=== PATIENT | female | born 1940 | race Caucasian/White ===

== ENCOUNTER 2017-02-06 23:07 | Emergency (ER) | payer MEDICARE, OTHER ==
[~2017-02-06 23:07] MED LIST: 8 HOUR650 MG PO; ALLEGRA OTC PO; ALLEGRA180 PO; ALPHA LIPOIC ACID PO; AMITIZA8 MCG PO; AMOXIL875 PO; ASAB PO; ASAEC PO; AUG875 PO; BETHAN10B PO; C25 PO; CENTRUM PO; CENTRUM TAB1 TAB PO; CITRACAL PO; COZ25 PO; DIOV160 PO; DOK250 MG PO; DSS PO; ENABLEX7.5 PO; FLONASE NAS; FORTEO SC; HALF81 PO; HUMI PO; IBU600 PO; IRON325 MG PO; LIDOCAINE 2% JELLY TOP; LORTAB 5 PO; LORTAB 5/325 PO; LOVENOX40 SC; LYRICA25 PO; MAXIMUM D3 PO; MIRALAXPKT PO; MIRAPEX ER0.75 MG PO; MIRAPEX0.75 MG PO; MIRAPEX5 PO; MONODOX100 MG PO; MULTIVITAMI1 PO; NEUR100 PO; NOR10 PO; NORCO1 TA1 PO; NORV5 PO; OS250 PO; OSTEO BI-FLEX1 EACH PO; PREM9 PO; PRESERVISION A1 EAC1 PO; PRILO PO; PROAIR HFA INH; PROLIA60 MG/1 ML SC; PROTONIX PO; REG5 PO; REST15 PO; SINGULAIR1 PO; STOOL SOFTEN100 MG PO; T PO; THERGRANM PO; TYLENOL 8 HR650 MG PO; TYLENOL ARTH650 MG PO; VITAMIN D31000 UNIT PO; ZOFRAN ODT4 MG PO; ZOSYN375 IV; [UNRECOGNIZED DRUG - OTHER] PO
[2017-02-07 00:22] LABS: INTERNATIONAL NORMAL RATI 1.1 UNITS (-); PROTIME (NOT ORD) 13.8 SEC (12.0-14.5)
[2017-02-07 00:23] LABS: ASCORBIC ACID (UR NOT ORDER) 40 (NEG); BILIRUBIN, URINE NEGATIVE (NEG); ER URINALYSIS TAT 0 Hrs 07 Mins; KETONE, URINE NEGATIVE (NEG); LEUKOCYTE ESTERASE(NOT OR LARGE (NEG)
[2017-02-07 00:24] LABS: NITRITE (URINE) POS (NEG); WBC (NOT ORDERED) (RFLEX) > 182 (0-5)
[2017-02-07 00:30] LABS: LACTATE 0.9 MMOL/L (0.3-2.4)
[2017-02-07 00:33] LABS: CHLORIDE, SERUM 108 MMOL/L (96-112); CO2 (CARBON DIOXIDE) 22 MMOL/L (24-34); CREATININE 0.63 MG/DL (0.55-1.02); GFR AFRICAN AMERICAN 100 ML/MIN (>=60); GFR NON AFRICAN AMERICAN 86 ML/MIN (>=60); SGOT(AST) 15 U/L (5-40); SGPT(ALT) 22 U/L (5-65); SODIUM, SERUM 139 MMOL/L (135-148); TOTAL BILIRUBIN 0.6 MG/DL (0-1.2); TROPONIN I <0.02 NG/ML (<0.05)
[2017-02-07 00:34] LABS: A/G RATIO 0.8 (0.7-1.9); ALBUMIN 3.5 G/DL (3.5-5.0); ALKALINE PHOSPHATASE 108 U/L (45-117); BUN (BLOOD UREA NITROGEN) 24 MG/DL (6-23); CALCIUM, SERUM 8.7 MG/DL (8.5-10.4); GLOBULIN 4.2 G/DL (2.5-4.1); GLUCOSE, SERUM 119 MG/DL (60-99); INFLUENZA A SCREEN NEGATIVE (NEGATIVE); INFLUENZA B SCREEN NEGATIVE (NEGATIVE); POTASSIUM, SERUM 4.5 MMOL/L (3.5-5.3); TOTAL PROTEIN 7.7 G/DL (6.0-8.5)
[2017-02-07 00:36] LABS: BASOPHILS 0.1 %; BASOPHILS ABSOLUTE 0.01 10/3/uL (0.0-0.16); EOSINOPHILS 0 %; ER CBC TAT 0 Hrs 33 Mins; HEMOGLOBIN 12.4 g/dL (12.0-16.0); IMMATURE GRANULOCYTES 0.1 %; IMMATURE GRANULOCYTES ABSOLUTE 0.01 10/3/uL (0.0-0.11); LYMPHOCYTES 5.1 %; LYMPHOCYTES ABSOLUTE 0.39 10/3/uL (0.67-4.30); MEAN CORPUS HGB CONC 31.8 g/dL (32.0-36.0); MEAN CORPUSCULAR VOLUME 94.4 fL (80-100); MEAN PLATELET VOLUME 10.4 fL (9.2-13.0); MONOCYTES 5.3 %; MONOCYTES ABSOLUTE 0.41 10/3/uL (0.21-1.20); NEUTROPHILS 89.4 %; NEUTROPHILS ABSOLUTE 6.87 10/3/uL (2.02-8.40); PLATELET COUNT 250 10/3/uL (150-400); RBC DISTRIBUTION WIDTH 14.4 % (12.0-16.0); RED CELL COUNT 4.13 10/6/uL (4.0-5.6); WHITE BLOOD CELLS 7.7 10/3/uL (4.5-10.5)
[2017-02-07 00:37] LABS: MANUAL DIFF NO %
[2017-02-07 00:56] LABS: BAND NEUTROPHILS 33 %; ER DIFF TAT 0 Hrs 53 Mins; LYMPHOCYTES 4 %; LYMPHOCYTES ABSOLUTE (CALC) 0.31 10/3/uL (0.67-4.30); NEUTROPHILS ABSOLUTE (CALC) 7.39 10/3/uL (2.02-8.40); SEGMENTED NEUTROPHIL (0) 63 %; TOTAL NUCLEATED CELLS 100
[2017-02-07 00:59] LABS: RBC MORPHOLOGY NORM (NORMAL)
[2017-02-07 02:18] LABS: PROCALCITONIN 0.77 ng/mL (<0.5)
== END 2017-02-07 03:17 | disposition home or self-care (01) ==
LOC: ER 23:07
PROVIDERS: Nurse Practitioner
DX: N39.0 Urinary tract infection, site not specified (principal); M79.1 Myalgia; R11.2 Nausea with vomiting, unspecified; J45.909 Unspecified asthma, uncomplicated; I10 Essential (primary) hypertension; K21.9 Gastro-esophageal reflux disease without esophagitis; I25.10 Atherosclerotic heart disease of native coronary artery without angina pectoris; Z87.01 Personal history of pneumonia (recurrent); Z88.8 Allergy status to other drugs, medicaments and biological substances; Z88.1 Allergy status to other antibiotic agents; Z79.82 Long term (current) use of aspirin; Z79.899 Other long term (current) drug therapy
CPT/HCPCS: 74022; 80053; 81001; 83605; 83690; 84145; 84484; 85025; 85610; 85730; 87077; 87086; 87186; 87804; 96374; 96375; 99285; J2405

== ENCOUNTER 2017-04-15 14:56 | Observation (INO) | payer MEDICARE, OTHER ==
--- NOTE | ~2017-04-15 | CN ---
Consultation Report [facility] [address] [place]. [address] NAME: ÁNGELA DOSHI : 36 STATUS : ADM Thomas PAT#: [id number] AGE: 76 ADM/REG DATE : 04/15/17 MR#: [id number] REPORT SERV DATE: 04/16/17 DICTATED BY: DEBRA VALLE DATE: 04/16/17 REPORT STATUS : Draft TRANSCRIBED BY: MODL DATE: 04/16/17 NEUROLOGY CONSULTATION DATE OF CONSULTATION: 04/16/2017 REASON FOR CONSULTATION: Dysarthria and left arm weakness. HOSPITALIST: Dr. Yue Read/Dr. Christian Bustos. HISTORY OF PRESENT ILLNESS: The patient is a 76-year-old female, who has a history of stroke with left-sided arm weakness and dysarthria, this occurred in 2008. She seemed to recover fairly quickly. However, she did have some intermittent dysarthria and left arm weakness. The patient mentions that for several years, she seemed to do fairly well in regard to recovery, but over the last couple of weeks, she began to become dysarthric and had weakness in her left arm. She denies any fever, chills, nausea, or vomiting; however, she does have persistent and chronic urinary tract infections. The patient was concerned that maybe she was having a recurrence of her stroke. She also mentions that she has sharp left axillary pain and was concerned that maybe she was having a heart attack. When she came into the emergency department, she had an EKG and troponins drawn and was told that she was not having a heart attack. 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 PAST SURGICAL HISTORY: Heart catheterization, partial colectomy without colostomy, bladder surgery x2, skin cancer removal, left hip surgery, right knee surgery, hysterectomy, sinus surgery, possible lung resection and biopsy. HOME MEDICATIONS: List includes aspirin 81 mg daily and 324 mg p.r.n. chest pain, Prolia 60 mg subcu every six months, Roz 180 mg at bedtime, Neurontin 100 mg q.i.d., Osteo Bi-Flex 1 b.i.d., [place] 5/325 mg half a tablet with breakfast and lunch and a whole tablet at bedtime, Singulair 10 mg at bedtime, Centrum tablet 1 daily, Protonix 40 mg every morning, Mirapex 0.75 mg at bedtime, lidocaine topically on the affected areas and PreserVision AREDS 2 soft gel capsules daily. ALLERGIES: ERYTHROMYCIN, MACRODANTIN, ATIVAN, SIMVASTATIN, AND LEVAQUIN. SOCIAL HISTORY: The patient is x2. 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 She does not smoke, drink, alcohol, or use illicits. Her mother from a stroke. Her father from lung cancer and she has a brother with MS. Consultation Report [address] [address] NAME: ÁNGELA DOSHI : 38 STATUS : ADM Thomas PAT#: [id number] AGE: 76 ADM/REG DATE : 04/15/17 MR#: [id number] REPORT SERV DATE: 04/16/17 DICTATED BY: DEBRA VALLE DATE: 04/16/17 REPORT STATUS : Draft TRANSCRIBED BY: KESHAWN DATE: 04/16/17 REVIEW OF SYSTEMS: Please refer to HPI for pertinent positives. PHYSICAL EXAMINATION: GENERAL: The patient is a 76-year-old female, who is afebrile. VITAL SIGNS: Heart rate 86, respiratory rate 18, O2 saturations on room air 98%, blood pressure 171/77. NEURO: She is alert and oriented x4. Communicates appropriately. However, she is dysarthric. Cranial nerves II through XII are intact. Uadubl-pl-fepa, no ataxia. No pronator drift. She is weaker on the left arm than the right arm. Upper DTRs are 2+ bilaterally. No sensory deficits reported. Lower extremity strength is 5/5. Unable to elicit a DTR in the right, patellar region to the left is 1+, downgoing toes. CARDIAC: Regular rate and rhythm. CHEST: Lung sounds are clear. LABORATORY DATA: CBC is normal. BMP relatively normal except potassium of 3.4. PTH is 177.9. Urine drug screen positive for opiates and cannabinoids. CT of the brain, negative for acute changes. EKG, sinus rhythm with possible LVH. ASSESSMENT/PLAN: 1. Chronic urinary tract infections, predominantly Pseudomonas. At this point, we will recheck a urine sample with in-and-out catheterization. This could certainly be the cause of stroke mimic. 2. The patient has a history of stroke (right MCA territory). We will send the patient for MRI of the brain without gadolinium and an MRA of the head and neck with gadolinium. In the meantime, the patient will continue her aspirin, and we will place her on a statin. PT/OT consultation and Speech Therapy consultation for her dysarthria. We will check further lab work and progress from there. Thank you again for including us in consultation. We will continue to follow with you. JACQUELYN/KESHAWN Debra Valle DNP, [facility] / [id number] CC: Emily Cortes M.D. Richard L Yap, M.D.
--- NOTE | ~2017-04-15 | HP ---
History And Physical [place] [address] [facility]. [address] NAME: ÁNGELA DOSHI : 38 STATUS : ADM Thomas PAT#: [id number] AGE: 76 ADM/REG DATE : 04/15/17 MR#: [id number] REPORT SERV DATE: 04/15/17 DICTATED BY: ANGE VERDUZCO DATE: 04/15/17 REPORT STATUS : Draft TRANSCRIBED BY: MODL DATE: 04/15/17 DATE OF ADMISSION: 04/15/2017 CHIEF COMPLAINT: A 76-year-old female presenting with weakness left arm pain. HISTORY OF PRESENTING ILLNESS: The patient's history was obtained through careful interview with the patient and daughter coupled with review of [facility] and [facility] medical records. Just over the last 24 to 48 hours, the patient has had increasing fatigue, tiredness, and just feeling "weak all over." She has also had new-onset left armpit pain that radiates up into her shoulder. It is not associated with movement of her shoulder joint and it comes and goes. She describes the quality as "someone trying to twist my arm off," a 9/10 severity that will last five or ten minutes at a time. It will radiate down to her elbow and upward to her neck and back, and is described as a sharp quality as well. She describes it is also similar to lower extremity neuropathy symptoms that she has suffered for a number of years. For the last two or three months, she has had progressive left arm paresthesias that are new on onset, but no associated left arm weakness. She has had slight worsening of her chronic dysarthria over the last 24 hours and sometimes may have very mild aphasia where she seems to misplace words, but it is not too severe. No confusion, no double vision, no hemiparesis, no gait disturbance. She has a chronic ostomy and has had increased ostomy output over the last several days. No lightheadedness. No dizziness. She has been diaphoretic with sweats, but no fevers or chills. No nausea or vomiting. No chest pain. No shortness of breath. No cough. REVIEW OF SYSTEMS: Otherwise, a 14-point review of systems was obtained and was negative. PAST MEDICAL HISTORY: 1. Stroke in 2008 with residuals speech deficit. 2. Seizure. 3. Pneumonia in 2013. 4. Obstructive sleep apnea, but not on CPAP. 5. Asthma. Denies smoking history. 6. Hypertension. 7. Gastroesophageal reflux disorder. 8. Obsessive-compulsive disorder. 9. Ischemic colitis leading to partial colectomy. 10.Chronic lower extremity neuropathy, on chronic pain medication, seen by Dr. Barrios and History And Physical [place] [address] [place]. [address] NAME: ÁNGELA DOSHI : 38 STATUS : ADM Thomas PAT#: [id number] AGE: 76 ADM/REG DATE : 04/15/17 MR#: [id number] REPORT SERV DATE: 04/15/17 DICTATED BY: ANGE VERDUZCO DATE: 04/15/17 REPORT STATUS : Draft TRANSCRIBED BY: KESHAWN DATE: 04/15/17 also at [facility]. 11.Nephrolithiasis, status post stent placement, seen by Dr. Varma. 12.Previous urinary tract infections with Pseudomonas. 13.Restless legs syndrome. 14.Positive gastroparesis study in 2010. 15.Negative catheterization of the heart in 2010. PAST SURGICAL HISTORY: 1. Partial colectomy with colostomy placement for ischemic colitis in 2012. 2. Bladder surgery x2. 3. Skin cancer removals. 4. Left hip surgery. 5. Right knee surgery. 6. Hysterectomy. 7. Sinus surgery. 8. Possible partial lung resection or biopsy in the past? ALLERGIES: TO MACROBID, ATIVAN, ERYTHROMYCIN, SIMVASTATIN, AND LEVAQUIN. SOCIAL HISTORY: No tobacco abuse. No alcohol abuse. Lives alone in [place], [place]. Has been twice. 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 She has three children, two of her children live within 30 minutes, another daughter lives in [place]. FAMILY HISTORY: Mother had a stroke at 95 years of age. Father with lung cancer. Brother with multiple sclerosis. CURRENT MEDICATIONS: Include aspirin 162 mg p.o. daily, Prolia 60 mg every six months, Roz 180 mg p.o. daily, Neurontin 100 mg p.o. four times a day, glucosamine and hydrocodone 5 a half tablet at breakfast and lunch and then p.o. at bedtime, Singulair 10 mg p.o. daily, multivitamin, Protonix 40 mg p.o. daily, Mirapex 0.75 mg p.o. q.h.s., lidocaine jelly as needed. PHYSICAL EXAMINATION: VITAL SIGNS: Temperature 97.5, pulse 81, blood pressure 167/69, respiratory rate 18, O2 saturation 100% on room air. GENERAL: A pleasant, cooperative female, in no evidence of acute distress. NEUROLOGICAL: Cranial nerves 2 through 12 are intact and symmetrical. The patient has 5/5 strength in upper and lower extremities that is symmetrical. HEENT: Pupils equal, round, and reactive to light. No conjunctival pallor. No scleral icterus. Nares are patent. Oropharynx is clear of obstruction. Moist mucous membranes. NECK: Trachea midline. No thyromegaly. LYMPH: No cervical lymphadenopathy. No supraclavicular lymphadenopathy. No left axillary lymphadenopathy. RESPIRATORY: Clear to auscultation at bases. No wheezes, rales, or rhonchi. Normal respiratory effort. CARDIOVASCULAR: Regular rate and rhythm. There is a 2/6 rumbling systolic murmur. No rubs, History And Physical [address] [address] NAME: ÁNGELA DOSHI : 38 STATUS : ADM Thomas PAT#: [id number] AGE: 76 ADM/REG DATE : 04/15/17 MR#: [id number] REPORT SERV DATE: 04/15/17 DICTATED BY: ANGE VERDUZCO DATE: 04/15/17 REPORT STATUS : Draft TRANSCRIBED BY: MODJoy DATE: 04/15/17 or lydia. No extremity edema is appreciated. ABDOMEN: Soft, nontender, nondistended. Normal bowel sounds auscultated throughout. No hepatosplenomegaly. DERMATOLOGICAL: Warm and dry extremities. No pallor, no cyanosis. PSYCHIATRIC: Normal affect. Good mood. Alert and oriented x3. LABORATORY DATA: White blood cell count 6.8, hemoglobin 12, hematocrit 36, platelets 191. Sodium 141, potassium 4.3, chloride 109, bicarb 27, BUN 17, creatinine 0.63, glucose 109. Troponin negative. INR 1.0. Alcohol level negative. Urine drug screen positive for marijuana and opiates. Urinalysis shows 4 white blood cells. STUDIES: 1. Chest x-ray by my own evaluation shows no acute cardiopulmonary process. 2. EKG by my own evaluation shows sinus rhythm, left ventricular hypertrophy. 3. CT scan of the brain without contrast is pending at the time of dictation. ASSESSMENT AND PLAN: 1. Weakness. It is more of a global weakness rather than focal, but there has been gradual increase of left arm paresthesias, some slight increase in the patient's chronic dysarthria with possible mild aphasia as well. We will continue aspirin. Check a CT scan of the brain. Check an MRI of the brain. Check carotids. Check echocardiogram. Check fasting lipid panel. Check telemetry. Obtain a Physical Therapy evaluation. Obtain a neurology consult with Dr. Barrios. 2. Late effects of stroke. 3. Chronic pain management. 4. Murmur. Check an echocardiogram. 5. Chronic neuropathy. KPL/MODL Ange Verduzco M.D. / [id number] CC: Emily Cortes M.D.
--- NOTE | ~2017-04-15 | DS ---
Discharge Summary [facility] [address] [facility] [place]. [address] NAME: ÁNGELA DOSHI : 36 STATUS : DIS Thomas PAT#: [id number] AGE: 76 ADM/REG DATE : 04/15/17 MR#: [id number] REPORT SERV DATE: 04/17/17 DICTATED BY: NAVID CHOW DATE: 04/17/17 REPORT STATUS : Draft TRANSCRIBED BY: MODL DATE: 04/17/17 ADMISSION DATE: 04/15/2017 DISCHARGE DATE: 04/17/2017 CONSULTING PHYSICIAN: Neurology. FINAL DIAGNOSES: 1. Dysarthria. 2. History of old cerebrovascular accident. 3. Hypertension. 4. Chronic lower extremity pain and neuropathy. 5. Status post hypokalemia. 6. History of colostomy for ischemic colitis. 7. Restless leg syndrome. DIAGNOSTIC EXAMS: Chest x-ray showing emphysematous changes. Heart size normal. CAT scan of the brain, stable mild age-appropriate diffuse cerebral involutional changes, no acute intracranial pathology. Echocardiogram showing normal left ventricular size and systolic function with EF of 55%. Normal left ventricular diastolic dysfunction. Normal right ventricular size and systolic function. No significant valve disease. MRI of the brain showing no acute CVA or other acute intracranial pathology. Mild diffuse cerebral involutional changes and deep white matter chronic microvascular ischemic change. MRA of the head showing developmental variant supply of the right posterior artery from the anterior circulation and partial supply left posterior cerebral artery from the anterior circulation. Short segment smooth estimated 50% narrowing cranial portion of the V4 segment of the left vertebral artery just above the superior cerebellar artery branch. MRA of the neck showing unremarkable MRA of the carotid arteries. No significant atherosclerotic plaque or stenosis. Short segment estimated 50% smooth stenosis of the V4 segment of the left vertebral artery just proximal to the confluence to form the basilar artery. Otherwise, normal caliber and antegrade flow to the remaining bilateral vertebral arteries. HOSPITAL COURSE: Please refer to the H and P done by Dr. Lo dated on 04/15/2017. Briefly, this is a 76-year-old female, who comes in with weakness and left arm pain. The patient has a history of dysarthria and left arm paresthesias and was admitted by Dr. Lo for 48 hours of increasing fatigue, tiredness, and feeling weak. The patient had the above tests, and we got Neurology involved. They wanted the PT/OT to evaluate the patient and Speech. Speech recommended further speech therapy. Meanwhile, the patient arm pain and paresthesias seems to be back to normal with her regular medications and her dysarthria is apparently better. She said that she wants to go home. So, once we have Neurology, PT and OT see the patient Discharge Summary [place] [address] [place]. [address] NAME: ÁNGELA DOSHI : 36 STATUS : DIS Thomas PAT#: [id number] AGE: 76 ADM/REG DATE : 04/15/17 MR#: [id number] REPORT SERV DATE: 04/17/17 DICTATED BY: NAVID CHOW DATE: 04/17/17 REPORT STATUS : Draft TRANSCRIBED BY: KESHAWN DATE: 04/17/17 and agree with discharge, we will be discharging the patient with the above diagnosis. She will be on the following medications. Lipitor 40 mg at bedtime, Singulair 10 mg at bedtime, Mirapex 0.75 mg at bedtime, Protonix 40 mg a day, gabapentin 100 mg four times a day, [place] 5/325 half a tablet with breakfast and lunch and one tablet at night, Prolia 60 mg/mL q.6 months, Roz 180 mg at bedtime, aspirin 162 mg a day, multivitamin once a day. The patient will follow up with Shonda Aguero in one to two weeks. This has been explained to the patient, and she agreed and understood the plan DICTATED BY: Emily North/KESHAWN Navid Chow M.D. / [id number] CC: Emily North M.D.
[2017-04-15 16:03] LABS: BASOPHILS 0.4 %; BASOPHILS ABSOLUTE 0.03 10/3/uL (0.0-0.16); EOSINOPHILS 0.6 %; EOSINOPHILS ABSOLUTE 0.04 10/3/uL (0.0-0.53); HEMATOCRIT 36.3 % (36.0-48.0); HEMOGLOBIN 11.7 g/dL (12.0-16.0); IMMATURE GRANULOCYTES 0.3 %; IMMATURE GRANULOCYTES ABSOLUTE 0.02 10/3/uL (0.0-0.11); LYMPHOCYTES 19.6 %; LYMPHOCYTES ABSOLUTE 1.33 10/3/uL (0.67-4.30); MEAN CORPUS HGB CONC 32.2 g/dL (32.0-36.0); MEAN CORPUSCULAR HEMOGLOB 30.2 pg (26.0-34.0); MEAN CORPUSCULAR VOLUME 93.6 fL (80-100); MEAN PLATELET VOLUME 10.2 fL (9.2-13.0); MONOCYTES 5.2 %; MONOCYTES ABSOLUTE 0.35 10/3/uL (0.21-1.20); NEUTROPHILS 73.9 %; NEUTROPHILS ABSOLUTE 5.01 10/3/uL (2.02-8.40); PLATELET COUNT 191 10/3/uL (150-400); RBC DISTRIBUTION WIDTH 14.1 % (12.0-16.0); RED CELL COUNT 3.88 10/6/uL (4.0-5.6); WHITE BLOOD CELLS 6.8 10/3/uL (4.5-10.5)
[2017-04-15 16:04] LABS: MANUAL DIFF NO %
[2017-04-15 16:10] LABS: PARTIAL THROMBO TIME 29.3 SEC (22.5-37.2); PROTIME (NOT ORD) 13.5 SEC (12.0-14.5)
[2017-04-15 16:25] LABS: ACETAMINOPHEN LEVEL (TYLENOL) 4.1 MCG/ML (10.0-20.0); CALCIUM, SERUM 9.1 MG/DL (8.5-10.4); CHEST PAIN PROFILE TAT 0 Hrs 28 Mins; CHLORIDE, SERUM 109 MMOL/L (96-112); CREATININE 0.63 MG/DL (0.55-1.02); GFR AFRICAN AMERICAN 100 ML/MIN (>=60); GFR NON AFRICAN AMERICAN 86 ML/MIN (>=60); GLUCOSE, SERUM 109 MG/DL (60-99); POTASSIUM, SERUM 4.3 MMOL/L (3.5-5.3); SALICYLATE 4.3 MG/DL (-); SODIUM, SERUM 141 MMOL/L (135-148); TROPONIN I <0.02 NG/ML (<0.05)
[2017-04-15 16:26] LABS: ALCOHOL < 10 MG/DL (0); BUN (BLOOD UREA NITROGEN) 17 MG/DL (6-23); CO2 (CARBON DIOXIDE) 27 MMOL/L (24-34)
[2017-04-15 16:40] LABS: ASCORBIC ACID (UR NOT ORDER) 20 (NEG); BILIRUBIN, URINE NEGATIVE (NEG); ER URINALYSIS TAT 0 Hrs 12 Mins; KETONE, URINE NEGATIVE (NEG); LEUKOCYTE ESTERASE(NOT OR SMALL (NEG); NITRITE (URINE) NEG (NEG); WBC (NOT ORDERED) (RFLEX) 4 (0-5)
[2017-04-15 16:57] LABS: BENZODIAZEPINES (NOT ORD) NEG (NEG); PHENCYCLIDINE(PCP) NEG (NEG)
[2017-04-15 16:58] LABS: AMPHETAMINES (NOT ORD) NEG (NEG); BARBITURATES (NOT ORDERED NEG (NEG); CANNABINOIDS (THC) POS (NEG); COCAINE (NOT ORDERED) NEG (NEG); OPIATES POS (NEG); TRICYCLICS NEG (NEG)
[2017-04-15] MEDS ORDERED: MIRAPEX0.75 MG PO (19:28)
[2017-04-15] MEDS ORDERED: PROTONIX PO (19:28)
[2017-04-15] MEDS ORDERED: SINGULAIR1 PO (19:28)
[2017-04-15] MEDS ORDERED: NORCO1 TA1 PO ×2 (19:29→19:30)
[2017-04-15] MEDS ORDERED: NEUR100 PO (19:29)
[2017-04-15] MEDS ORDERED: PROLIA60 MG/1 ML SC (19:30)
[2017-04-15] MEDS ORDERED: ALLEGRA180 PO (19:30)
[2017-04-15] MEDS ORDERED: CENTRUM PO (19:31)
[2017-04-15] MEDS ORDERED: ASAB PO ×2 (19:31)
[2017-04-15] MEDS ORDERED: OSTEO BI-FLEX1 EACH PO (19:32)
[2017-04-15] MEDS ORDERED: PRESERVISION A1 EAC1 PO (19:33)
[2017-04-15] MEDS ORDERED: 8 HOUR650 MG PO (19:33)
[2017-04-15] MEDS ORDERED: LIDOCAINE 2% JELLY TOP (19:34)
[2017-04-16 04:07] LABS: BASOPHILS 0.5 %; BASOPHILS ABSOLUTE 0.04 10/3/uL (0.0-0.16); EOSINOPHILS 1.1 %; EOSINOPHILS ABSOLUTE 0.08 10/3/uL (0.0-0.53); HEMATOCRIT 35.1 % (36.0-48.0); HEMOGLOBIN 11.5 g/dL (12.0-16.0); IMMATURE GRANULOCYTES 0.1 %; IMMATURE GRANULOCYTES ABSOLUTE 0.01 10/3/uL (0.0-0.11); LYMPHOCYTES 22.6 %; LYMPHOCYTES ABSOLUTE 1.71 10/3/uL (0.67-4.30); MEAN CORPUS HGB CONC 32.8 g/dL (32.0-36.0); MEAN CORPUSCULAR HEMOGLOB 30.3 pg (26.0-34.0); MEAN CORPUSCULAR VOLUME 92.6 fL (80-100); MEAN PLATELET VOLUME 10.1 fL (9.2-13.0); MONOCYTES 5.2 %; MONOCYTES ABSOLUTE 0.39 10/3/uL (0.21-1.20); NEUTROPHILS 70.5 %; NEUTROPHILS ABSOLUTE 5.33 10/3/uL (2.02-8.40); PLATELET COUNT 202 10/3/uL (150-400); RBC DISTRIBUTION WIDTH 13.8 % (12.0-16.0); RED CELL COUNT 3.79 10/6/uL (4.0-5.6); WHITE BLOOD CELLS 7.6 10/3/uL (4.5-10.5)
[2017-04-16 04:08] LABS: MANUAL DIFF NO %
[2017-04-16 04:14] LABS: INTERNATIONAL NORMAL RATI 1.2 UNITS (-); PROTIME (NOT ORD) 14.7 SEC (12.0-14.5)
[2017-04-16 04:15] LABS: PARTIAL THROMBO TIME 36.8 SEC (22.5-37.2)
[2017-04-16 04:38] LABS: ALBUMIN 3.2 G/DL (3.5-5.0); ALKALINE PHOSPHATASE 94 U/L (45-117); BUN (BLOOD UREA NITROGEN) 16 MG/DL (6-23); CALCIUM, SERUM 8.7 MG/DL (8.5-10.4); CHLORIDE, SERUM 107 MMOL/L (96-112); CHOL/HDL RATIO(NOT ORDER) 2.3 (0-5); CHOLESTEROL 140 MG/DL (< 200); CO2 (CARBON DIOXIDE) 28 MMOL/L (24-34); CREATININE 0.55 MG/DL (0.55-1.02); GFR AFRICAN AMERICAN 104 ML/MIN (>=60); GFR NON AFRICAN AMERICAN 90 ML/MIN (>=60); GLOBULIN 3.2 G/DL (2.5-4.1); GLUCOSE, SERUM 98 MG/DL (60-99); HDL CHOLESTEROL 62 MG/DL (> 49); LDL CHOLESTEROL 57 MG/DL (< 130); NON-HDL CHOLESTEROL 78 MG/DL (< 160); POTASSIUM, SERUM 3.4 MMOL/L (3.5-5.3); SGOT(AST) 18 U/L (5-40); SGPT(ALT) 19 U/L (5-65); SODIUM, SERUM 142 MMOL/L (135-148); TOTAL BILIRUBIN 0.3 MG/DL (0-1.2); TOTAL PROTEIN 6.4 G/DL (6.0-8.5); TRIGLYCERIDE 109 MG/DL (< 150); TROPONIN I <0.02 NG/ML (<0.05); ULTRASENSITIVE TSH 0.758 MCIU/ML (0.358-3.740)
[2017-04-17 05:09] LABS: ASCORBIC ACID (UR NOT ORDER) NEG (NEG); BILIRUBIN, URINE NEGATIVE (NEG); KETONE, URINE NEGATIVE (NEG); LEUKOCYTE ESTERASE(NOT OR NEG (NEG); WBC (NOT ORDERED) (RFLEX) < 1 (0-5)
[2017-04-17 05:21] LABS: BUN (BLOOD UREA NITROGEN) 17 MG/DL (6-23); CALCIUM, SERUM 8.4 MG/DL (8.5-10.4); CHLORIDE, SERUM 106 MMOL/L (96-112); CO2 (CARBON DIOXIDE) 30 MMOL/L (24-34); CREATININE 0.59 MG/DL (0.55-1.02); GFR AFRICAN AMERICAN 102 ML/MIN (>=60); GFR NON AFRICAN AMERICAN 88 ML/MIN (>=60); GLUCOSE, SERUM 97 MG/DL (60-99); HDL CHOLESTEROL 62 MG/DL (> 49); SODIUM, SERUM 142 MMOL/L (135-148)
[2017-04-17 05:23] LABS: CHOL/HDL RATIO(NOT ORDER) 2.7 (0-5); CHOLESTEROL 170 MG/DL (< 200); FOLATE 42.5 NG/ML (>5.2); LDL CHOLESTEROL 77 MG/DL (< 130); NON-HDL CHOLESTEROL 108 MG/DL (< 160); TRIGLYCERIDE 159 MG/DL (< 150)
[2017-04-17 07:22] LABS: GLYCOHEMOGLOBIN (HbA1c) 5.7 % (4.7-6.1)
[2017-04-17] MEDS ORDERED: X5 PO (18:43)
[2017-04-17] MEDS ORDERED: LIPITOR40 PO (18:46)
== END 2017-04-17 19:22 | disposition home or self-care (01) ==
LOC: ER 14:56 → CDU1 19:39 → CDU2 20:43
PROVIDERS: Emergency Medicine; Hospitalist; Internal Medicine; Nurse Practitioner
DX: R47.1 Dysarthria and anarthria (principal); I10 Essential (primary) hypertension; G25.81 Restless legs syndrome; R56.9 Unspecified convulsions; G47.33 Obstructive sleep apnea (adult) (pediatric); J45.909 Unspecified asthma, uncomplicated; M19.90 Unspecified osteoarthritis, unspecified site; F42.9 Obsessive-compulsive disorder, unspecified; G62.9 Polyneuropathy, unspecified; M81.0 Age-related osteoporosis without current pathological fracture; K21.9 Gastro-esophageal reflux disease without esophagitis; F41.9 Anxiety disorder, unspecified; D64.9 Anemia, unspecified; Z86.73 Personal history of transient ischemic attack (TIA), and cerebral infarction without residual deficits; Z79.899 Other long term (current) drug therapy; Z87.442 Personal history of urinary calculi; Z79.82 Long term (current) use of aspirin; Z87.440 Personal history of urinary (tract) infections; Z90.710 Acquired absence of both cervix and uterus; Z98.890 Other specified postprocedural states; Z88.1 Allergy status to other antibiotic agents; Z88.8 Allergy status to other drugs, medicaments and biological substances
CPT/HCPCS: 70450; 70544; 70548; 70551; 71010; 80048; 80053; 80061; 80305; 80307; 81001; 82140; 82306; 82533; 82607; 82746; 83036; 83735; 83880; 84443; 84484; 85025; 85610; 85730; 87086; 92523-GN; 93005; 93306; 97165-GO; 99285; A9270-GY; A9577; G0378; G8999-CL-GN; G9158-CL-GN; G9186-CL-GN; J1110

== ENCOUNTER 2017-05-05 23:59 | Emergency (ER) | payer MEDICARE, OTHER ==
[2017-05-05 23:22] LABS: BASOPHILS 0.2 %; BASOPHILS ABSOLUTE 0.02 10/3/uL (0.0-0.16); EOSINOPHILS 0.4 %; EOSINOPHILS ABSOLUTE 0.04 10/3/uL (0.0-0.53); ER CBC TAT 0 Hrs 03 Mins; HEMOGLOBIN 11.6 g/dL (12.0-16.0); IMMATURE GRANULOCYTES 0.2 %; IMMATURE GRANULOCYTES ABSOLUTE 0.02 10/3/uL (0.0-0.11); LYMPHOCYTES 13.1 %; LYMPHOCYTES ABSOLUTE 1.24 10/3/uL (0.67-4.30); MEAN CORPUS HGB CONC 32.2 g/dL (32.0-36.0); MEAN CORPUSCULAR HEMOGLOB 30.4 pg (26.0-34.0); MEAN CORPUSCULAR VOLUME 94.2 fL (80-100); MEAN PLATELET VOLUME 10.4 fL (9.2-13.0); MONOCYTES 4.2 %; NEUTROPHILS 81.9 %; NEUTROPHILS ABSOLUTE 7.78 10/3/uL (2.02-8.40); PLATELET COUNT 210 10/3/uL (150-400); RBC DISTRIBUTION WIDTH 13.7 % (12.0-16.0); RED CELL COUNT 3.82 10/6/uL (4.0-5.6); WHITE BLOOD CELLS 9.5 10/3/uL (4.5-10.5)
[2017-05-05 23:24] LABS: MANUAL DIFF NO %
[2017-05-05 23:35] LABS: BUN (BLOOD UREA NITROGEN) 20 MG/DL (6-23); CALCIUM, SERUM 9.3 MG/DL (8.5-10.4); CHLORIDE, SERUM 109 MMOL/L (96-112); CO2 (CARBON DIOXIDE) 27 MMOL/L (24-34); CREATININE 0.72 MG/DL (0.55-1.02); GFR AFRICAN AMERICAN 93 ML/MIN (>=60); GFR NON AFRICAN AMERICAN 80 ML/MIN (>=60); GLUCOSE, SERUM 96 MG/DL (60-99); POTASSIUM, SERUM 4.1 MMOL/L (3.5-5.3); SODIUM, SERUM 142 MMOL/L (135-148)
[~2017-05-05 23:59] MED LIST changes: +LIPITOR40 PO; +X5 PO
== END 2017-05-06 01:00 | disposition home or self-care (01) ==
LOC: ER 23:59
PROVIDERS: Specialist
PROC: 0HQ0XZZ Repair Scalp Skin, External Approach (ICD-10-PCS; principal; 2017-05-05)
DX: S01.01XA Laceration without foreign body of scalp, initial encounter (principal); S51.811A Laceration without foreign body of right forearm, initial encounter; I10 Essential (primary) hypertension; Z86.73 Personal history of transient ischemic attack (TIA), and cerebral infarction without residual deficits; Z85.820 Personal history of malignant melanoma of skin; Z88.8 Allergy status to other drugs, medicaments and biological substances; Z88.1 Allergy status to other antibiotic agents; Z79.899 Other long term (current) drug therapy; Z79.82 Long term (current) use of aspirin; W22.8XXA Striking against or struck by other objects, initial encounter
CPT/HCPCS: 70450; 73090-RT; 80048; 85025; 99284